=== PATIENT | female | born 2000 | race Caucasian/White ===

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

== ENCOUNTER 2023-08-04 12:49 | Emergency (ER) | payer BC ==
[~2023-08-04] VITALS: Ht 167.6 cm; Wt 54.4 kg
[2023-08-04 12:55] VITALS: BP_SYST 133; PULSE 95; RESP 18; TEMP 98.2; O2SAT 98
[2023-08-04 13:18] VITALS: BP_SYST 133; PULSE 95; RESP 18; TEMP 98.2; O2SAT 98
[2023-08-04 13:20] LABS: BILIRUBIN,URINE NEGATIVE (NEGATIVE); BLOOD, URINE 3+ (NEGATIVE); CLARITY/URINE CLOUDY (CLEAR); COLOR,URINE YELLOW (YELLOW); GLUCOSE,URINE NEGATIVE (NEGATIVE); KETONES,URINE NEGATIVE (NEGATIVE); LEUKOCYTE ESTERASE ,URINE NEGATIVE (NEGATIVE); NITRITE, URINE NEGATIVE (NEGATIVE); PH,URINE 5.5 (5.0-8.0); PROTEIN URINE NEGATIVE (NEGATIVE); UROBILINOGEN,URINE 0.2 (0.2-1.0)
[2023-08-04 13:30] LABS: BACTERIA,URINE RARE /HPF (None Seen); MUCUS,URINE 1+ /LPF (None Seen); RBC,URINE 50-80 /HPF (0-3); WBC,URINE 0-3 /HPF (0-3)
[2023-08-04] MEDS ORDERED: NITR-85 PO (13:45)
[2023-08-04] MEDS ORDERED: PHEN-727 PO (13:45)
== END 2023-08-04 13:55 | disposition home or self-care (01) ==
LOC: SED 12:49
DX: N39.0 Urinary tract infection, site not specified (principal); Z79.899 Other long term (current) drug therapy
CPT/HCPCS: 81000; 81001; 81015; 81025; 99283

== ENCOUNTER 2023-10-24 12:53 | Emergency (ER) | payer BC ==
[~2023-10-24] VITALS: Ht 162.6 cm; Wt 61.2 kg
[~2023-10-24 12:53] MED LIST: NITR-85 PO; PHEN-727 PO
[2023-10-24 13:12] VITALS: BP_SYST 135; PULSE 87; RESP 18; TEMP 97.8; O2SAT 99
[2023-10-24] MEDS ORDERED: SULF15DR6 EACH EYE (13:30)
[2023-10-24 13:35] VITALS: BP_SYST 126; PULSE 72; RESP 16; TEMP 97.8; O2SAT 99
== END 2023-10-24 13:35 | disposition home or self-care (01) ==
LOC: SED 12:53
DX: H00.015 Hordeolum externum left lower eyelid (principal); Z79.899 Other long term (current) drug therapy
CPT/HCPCS: 99283